=== PATIENT | female | born 1965 | race Caucasian/White ===

== ENCOUNTER 2023-06-29 09:07 | Emergency (ER) | payer SELFPAY ==
[2023-06-29] VITALS (14 sets, daily range): BP systolic 123–136; BP diastolic 72–82; PULSE 74–89; RESP 18; TEMP 36.3; O2SAT 89–96; BMI 39.0
--- NOTE | 2023-06-29 09:20 | ED.GENADULT ---
HPI - General Adult General Chief complaint: Abdominal Pain Stated complaint: abdominal pain Time Seen by Provider: 06/29/23 09:19 History of Present Illness HPI narrative: patient is having abdominal pain for a week. feels as if a pain of ball in the RUQ. sx of cramps with diarrhea, burning, and pain in the lower abdomen. will drink water and then pain starts. unable to eat anything the pain will develop. stated stomach feels really hot as if has a fever. Appointment at [facility] [place] Jul 05 for US unable to wait due to pain 58-year-old woman presenting to the emergency department with complaint of crampy and burning abdominal pain that seems to come out of the right upper abdomen spreading across the upper abdomen. She has been having though diarrheal symptoms as well. She does not endorse any hematochezia or melena. This has been going on now for about a week. Anything she eats or drinks, tries to take her pills just triggers her to have a bowel movement. The bowel movement does improve her abdominal discomfort. Not had any fever. Does have generalized abdominal discomfort as well. Was apparently pending an ultrasound ordered by clinic in a week. Does not describe any dysuria or frequency. She does have a history of cholecystectomy and sounds as though she had cholelithiasis. She notes that has had similar occurrences of these episodes last may have been 5 years ago. She had a gallbladder taken out about 30 years ago. They have been treated with penicillin sometime she feels successfully. She did take 3 tablets of amoxicillin a few days ago but she says the did not do anything. She has also tried Tylenol and Pepto-Bismol. No family history of ulcerative colitis or Crohn's. Related Data Home Medications Medication Instructions Recorded Confirmed albuterol sulfate 90 mcg/actuation 1 - 2 puff inhalation Q4H PRN 06/29/23 06/29/23 aerosol inhaler dyspnea glipizide 5 mg tablet 5 mg PO BID 06/29/23 06/29/23 lisinopril 20 1 tab PO DAILY 06/29/23 06/29/23 mg-hydrochlorothiazide 12.5 mg tablet pantoprazole 40 mg tablet,delayed 40 mg PO QAM 06/29/23 06/29/23 release polyethylene glycol 3350 17 17 g PO DAILY 06/29/23 06/29/23 gram/dose oral powder (Gavilax) Allergies Allergy/AdvReac Type Severity Reaction Status Date / Time No Known Drug Allergies Allergy Verified 06/29/23 13:07 Review of Systems Status of ROS: Reports: 6 or more systems reviewed and unremarkable except as noted in History and below PFSH [facility] Social History Smoking Status: Never smoker How often do you have a drink containing alcohol: monthly or less How often do you have six or more drinks on one occasion: Never AUDIT-C Alcohol total score: 1 Non-prescribed substance use: denies use Exam Narrative: Exam Narrative: Pleasant. NAD. Careful makeup. Breathing easily. Lungs appear to be clear. Heart in a regular rate and rhythm. Skin is warm and dry. Numerous superficial varicosities in lower extremities. She is well-perfused. There is no lower extremity edema. Abdomen with normoactive bowel sounds is overweight full and mildly generally tender though definitely most so in the right upper quadrant. I can not palpate masses. No peritoneal signs. Const: Vital Signs, click to edit/add: Vital Signs - 24 hr 06/29/23 09:08 06/29/23 10:11 06/29/23 10:30 Temperature 97.3 F L Pulse Rate 75 77 Pulse Rate [Pulse Oximeter] 84 Respiratory Rate 18 Blood Pressure 123/72 Blood Pressure [Le ft Upper Arm] 126/73 Pulse Oximetry 92 89 92 Oxygen Delivery Me thod Room Air 06/29/23 10:45 06/29/23 12:19 06/29/23 12:23 Temperature Pulse Rate 89 77 Pulse Rate [Pulse Oximeter] Respiratory Rate Blood Pressure Blood Pressure [Le ft Upper Arm] Pulse Oximetry 93 90 91 Oxygen Delivery Me thod Documenting provider has reviewed patient's vital signs: yes Course Vital Signs Vital signs: Initial Vital Signs Temperature 97.3 F L 06/29/23 09:08 Temperature Source Temporal Artery Scan 06/29/23 09:08 Pulse Rate 84 06/29/23 09:08 Respiratory Rate 18 06/29/23 09:08 Blood Pressure 126/73 06/29/23 09:08 Blood Pressure Mean 90 06/29/23 09:08 Blood Pressure Position Sitting 06/29/23 09:08 Pulse Oximetry 92 06/29/23 09:08 Oxygen Delivery Method Room Air 06/29/23 09:08 Vital Signs Temperature 97.3 F L 06/29/23 09:08 Pulse Rate 84 06/29/23 09:08 Respiratory Rate 18 06/29/23 09:08 Blood Pressure 126/73 06/29/23 09:08 Pulse Oximetry 92 06/29/23 09:08 Oxygen Delivery Method Room Air 06/29/23 09:08 Temperature 97.3 F L 06/29/23 09:08 Pulse Rate 74 06/29/23 13:45 Respiratory Rate 18 06/29/23 09:08 Blood Pressure 134/80 06/29/23 13:01 Pulse Oximetry 95 06/29/23 13:45 Oxygen Delivery Method Room Air 06/29/23 09:08 Medical Decision Making MDM Narrative Medical decision making narrative: This may be related to her history of cholecystectomy. Might have developed a stone in the biliary system. May be gastritis or gastroenteritis or colitis with intestinal colic. No exposures to infection. Might warrant getting a stool culture. Will hydrate. She would like something for pain will give ketorolac as well as Zofran. Pending ultrasound of the right upper abdomen. Ultrasound now available is unremarkable. Had discussed earlier with cloth washer. Pain has escalated again. FINDINGS: The visualized liver demonstrates diffusely coarsened and increased echogenicity. No intrahepatic mass. There is a normal appearance of the hepatic IVC and proximal abdominal aorta. There is no evidence of ascites. The gallbladder is absent. The common bile duct is of normal size and measures 6 mm in diameter at the level of the doc hepatis. The pancreas is not well visualized. There is no evidence of a stone or hydronephrosis within the visualized right kidney. The right kidney measures 11.5 cm in length. IMPRESSION: Diffuse hepatic steatosis. Status post cholecystectomy. Labs are reassuring generally. Inflammatory marker form of CRP is mildly elevated. I did discuss going home with PPI and Imodium, the latter of which she has reported using in the past. She still would like more information on what might be going on. Noting that symptoms have been going on for a week. I discussed that a week of diarrhea and abdominal pain in the setting normal vitals and relatively normal labs is not necessarily surprising. However she has never had abdominal imaging and has had recurrent bouts of this and would like further evaluation. Will proceed with IV contrasted abdominal scan CT and pelvis. Did have another diarrheal movement and a stool culture has been collected Given morphine for pain. Started to complain of feeling short of breath. Was worried about her blood sugar. Checked at 104 per nursing and when she received this information was no longer short of breath. IV contrasted CT scan --I did personally review these images. Radiology over-read as below. IMPRESSION: 1. Colonic diverticulosis. Diffuse vascular engorgement suggesting hyperemia within the colon with fluid noted in the colonic lumen. Appearance is consistent with a diffuse colitis. Differential diagnosis includes infection and inflammatory bowel disease. 2. Hepatomegaly with hepatic steatosis. 3. Status post cholecystectomy with mild dilatation of the common duct. This likely represents reservoir effect s/p cholecystectomy although correlation with liver function studies suggested. If there is a cholestatic picture, MRCP may have improved characterization. Overall is improved with treatments as above. Seems reassured. Appears to have colitis. I do not think this is clinical consistent with the question raised above of a potential cholestatic picture. We discussed treatments. She would really like to proceed with antibiotics at this point feeling that they have definitely helped her in the past. I pointed out normal white count and generalized colitis unusual treatment being symptom relief. Pending stool cultures. I understand her preference is and since that is the case then would consider treatment with metronidazole and ciprofloxacin combination. See patient discharge plan Lab Data Lab results reviewed: Yes I reviewed the patient's lab results Labs: Lab Results 06/29/23 06/29/23 Range/Units 09:55 10:55 WBC 6.13 (4.50-11.00) K/uL RBC 4.62 (4.00-5.20) m/uL Hgb 13.8 (12.0-16.0) gm/dL Hct 43.1 (33.0-51.0) % MCV 93 (80-100) fL MCH 30 (26-34) pg MCHC 32 (32-36) gm/dL RDW Coeff of [place] 12.2 (11.5-15.5) % Plt Count 197 (140-440) K/uL Neut % (Auto) 64.0 (42.0-72.0) % Lymph % (Auto) 19.1 L (20-44) % [place] % (Auto) 14.4 H (0.0-11.0) % Eos % (Auto) 2.0 (0.0-7.0) % Baso % (Auto) 0.5 (0.0-3.0) % Neut # (Auto) 3.93 (1.7-7.0) K/uL Lymph # (Auto) 1.20 (0.90-2.90) K/uL [place] # (Auto) 0.90 (0.00-0.90) K/UL Eos # (Auto) 0.12 (0.00-0.50) K/uL Baso # (Auto) 0.03 (0.00-0.30) K/uL Abs Immat Gran (auto) 0.00 (0.00-0.30) K/uL Imm/Tot Granulo (auto) 0.0 % Sodium 137 (135-149) mmol/L Potassium 3.4 L (3.6-5.1) mmol/L Chloride 99 (96-114) mmol/L Carbon Dioxide 30 (20-32) mmol/L BUN 11 (7-30) mg/dL Creatinine 0.5 (0.5-1.5) mg/dL Estimated Creat Clear 156.15 Estimated GFR 108 ml/min Glucose 127 H (60-115) mg/dL Calcium 9.3 (8.4-10.6) mg/dL Total Bilirubin 0.5 (0.1-1.5) mg/dL Direct Bilirubin 0.0 (0.0-0.5) mg/dL AST 28 (12-35) U/L ALT 30 (4-35) U/L Alkaline Phosphatase 64 (40-150) U/L C-Reactive Protein 4.3 H (0.5-1.0) mg/dL Total Protein 7.8 (6.0-8.3) g/dL Albumin 4.3 (3.3-5.0) g/dL Lipase 109 (23-300) U/L Urine Color Yellow (Yellow) Urine Appearance Clear (Clear) Urine pH 6.5 (5.0-8.5) Ur Specific [place] 1.010 (1.000-1.030) Urine Protein Negative (Negative) Urine Glucose (UA) Negative (Negative) Urine Ketones Negative (Negative) Urine Blood Trace-intact A (Negative) Urine Nitrite Negative (Negative) Urine Bilirubin Negative (Negative) Urine Urobilinogen 0.2 (0.2-1.0) Ur Leukocyte Esterase Negative (Negative) Urine RBC 0-2 (0-2) Urine WBC 0-2 (0-5) Ur Squamous Epith Cells Few (None-Few) Urine Bacteria None (None) Discharge Plan Discharge Clinical Impression: Colitis, Abdominal pain Patient Disposition: Home w/ Parent or Adult Condition: Stable Additional Instructions: As I said, I am not convinced that antibiotics will help you. Focus on hydration. Gentle diet for the next few days. Start with diluted juices, soup broths, crackers, toast, rice. Return for marked increase in persistent pain, repeated vomiting, fever, intractable diarrhea. Ciprofloxacin, metronidazole, norco, zofran from [facility]. Please follow-up with your primary care provider in about 2 weeks to discuss next steps in plan for further evaluation. [place] dije, no estoy convencido de que los antibi?ticos te ayuden. Conc?ntrese en la hidrataci?n. Dieta suave para los pr?ximos d?as. Comience con jugos diluidos, caldos de sopa, galletas saladas, tostadas, arroz. Retorno para un marcado aumento del dolor persistente, v?mitos repetidos, fiebre, diarrea intratable. Ciprofloxacino, metronidazol, norco, zofran de [facility]. Yoan un seguimiento con schafer proveedor de atenci?n primaria en aproximadamente 2 semanas para analizar los pr?ximos pasos en el plan para neida evaluaci?n adicional. Prescriptions: No Action lisinopril-hydrochlorothiazide 20-12.5 mg tablet 1 tab PO DAILY pantoprazole 40 mg tablet,delayed release (DR/EC) 40 mg PO QAM albuterol sulfate 90 mcg/actuation HFA aerosol inhaler 1 - 2 puff INHALATION Q4H PRN (Reason: dyspnea) glipizide 5 mg tablet 5 mg PO BID polyethylene glycol 3350 [Gavilax] 17 gram/dose powder 17 g PO DAILY Follow Up/Referrals: Sarah Herrmann MD [Primary Care Provider] - Stand Alone Forms: [email or web address] Info Instructions
--- NOTE | 2023-06-29 09:45 | CRLHL7_ITS ---
For Patients: As a result of the Century Cures Act, medical imaging exams and procedure reports are released immediately into your electronic medical record. You may view this report before your referring provider. If you have questions, please contact your health care provider. INDICATION: UPPER ABD PAIN, DIARRHEA COMPARISON: none TECHNIQUE: Real time ayala scale imaging and color Doppler analysis was performed of the right upper quadrant. Examination limited by overlying bowel gas. FINDINGS: The visualized liver demonstrates diffusely coarsened and increased echogenicity. No intrahepatic mass. There is a normal appearance of the hepatic IVC and proximal abdominal aorta. There is no evidence of ascites. The gallbladder is absent. The common bile duct is of normal size and measures 6 mm in diameter at the level of the doc hepatis. The pancreas is not well visualized. There is no evidence of a stone or hydronephrosis within the visualized right kidney. The right kidney measures 11.5 cm in length. IMPRESSION: Diffuse hepatic steatosis. Status post cholecystectomy. Dictated by Chuck Bernal MD @ 06/29/2023 11:34:51 AM (Electronically Signed)
[2023-06-29] MEDS: 0.9 % SODIUM CHLORIDE 1000 ml 1,000 ML IV (10:02)
[2023-06-29] MEDS: ONDANSETRON 2 MG/ML inj 4 MG IVP (10:05)
[2023-06-29] MEDS: KETOROLAC 15 MG/ML inj IVP (10:05)
[2023-06-29 10:10] LABS: Basophils Absolute Auto 0.03 K/uL (0.00-0.30); Basophils Percent Auto 0.5 % (0.0-3.0); Eosinophils Absolute Auto 0.12 K/uL (0.00-0.50); Hematocrit 43.1 % (33.0-51.0); Hemoglobin* 13.8 gm/dL (12.0-16.0); Lymphocytes Percent Auto 19.1 % (20-44); Mean Corpuscular HGB Conc 32 gm/dL (32-36); Mean Corpuscular Hemoglobin 30 pg (26-34); Mean Corpuscular Volume 93 fL (80-100); Monocytes Percent Auto 14.4 % (0.0-11.0); Neutrophils Absolute Auto 3.93 K/uL (1.7-7.0); Platelet Count* 197 K/uL (140-440); RDW Coefficient of Variation % 12.2 % (11.5-15.5); Red Blood Count 4.62 m/uL (4.00-5.20); White Blood Count* 6.13 K/uL (4.50-11.00)
[2023-06-29 10:17] LABS: Slide Review Reflex No
[2023-06-29 10:24] LABS: Albumin* 4.3 g/dL (3.3-5.0); Chloride* 99 mmol/L (96-114); Sodium* 137 mmol/L (135-149)
[2023-06-29 10:25] LABS: Potassium* 3.4 mmol/L (3.6-5.1)
[2023-06-29 10:27] LABS: Bilirubin Total* 0.5 mg/dL (0.1-1.5); Carbon Dioxide* 30 mmol/L (20-32); Creatinine* 0.5 mg/dL (0.5-1.5); Est. Creatinine Clearance* 156.15; Estimated Glomerular Filt Rate 108 ml/min
[2023-06-29 10:28] LABS: Alanine Aminotransferase* 30 U/L (4-35); Alkaline Phosphatase* 64 U/L (40-150); Aspartate Amino Transferase* 28 U/L (12-35); Blood Urea Nitrogen* 11 mg/dL (7-30); Calcium* 9.3 mg/dL (8.4-10.6); Glucose* 127 mg/dL (60-115); Lipase* 109 U/L (23-300); Total Protein* 7.8 g/dL (6.0-8.3)
[2023-06-29 10:30] LABS: C Reactive Protein* 4.3 mg/dL (0.5-1.0)
[2023-06-29 11:07] LABS: Appearance Urine Clear (Clear); Bilirubin Urine Negative (Negative); Blood Urine Trace-intact (Negative); Color Urine Yellow (Yellow); Glucose Urine Negative (Negative); Ketones Urine Negative (Negative); Leukocyte Esterase Urine Negative (Negative); Nitrite Urine Negative (Negative); Protein Urine Negative (Negative); Urobilinogen Urine 0.2 (0.2-1.0); pH Urine 6.5 (5.0-8.5)
[2023-06-29 11:15] LABS: RBC Urine 0-2 (0-2); Squamous Epithelial Cell Urine Few (None-Few); WBC Urine 0-2 (0-5)
--- NOTE | 2023-06-29 11:39 | ED.NURSE ---
patient is having increased pain in that is sharp in the abdomen. Requesting something for pain. Informed Dr. Lopez of this.
--- NOTE | 2023-06-29 11:45 | CRLHL7_ITS ---
For Patients: As a result of the Century Cures Act, medical imaging exams and procedure reports are released immediately into your electronic medical record. You may view this report before your referring provider. If you have questions, please contact your health care provider. INDICATION: Abdominal pain, diarrhea and nausea TECHNIQUE: Axial images were obtained from the diaphragm to the pubic symphysis. Reformats were obtained in the coronal and sagittal plane. IV Contrast: 89 cc Isovue 370 Oral Contrast: None COMPARISON: Abdomen and pelvis CT 04/25/2020 FINDINGS: Lower chest: Basilar discoid atelectasis. Minimal fat containing Bochdalek hernia on the right. Liver: Diffusely decreased density of the liver without focal lesion. Mild hepatomegaly. Gallbladder and bile ducts: Status post cholecystectomy. Common duct measures 12 millimeters. Spleen: Unremarkable. Normal in size without mass. Pancreas: Unremarkable. No mass or inflammation. Adrenal glands: Unremarkable. No nodules. Kidneys: Unremarkable. No masses, stones, or hydronephrosis. Vasculature: Atherosclerosis without abdominal aortic aneurysm. Subcentimeter retroperitoneal lymph nodes. GI tract: Minimal hiatal hernia. Stomach is decompressed. No dilated loops of large or small intestine. Colonic diverticulosis. Fluid is noted within the colon with diffuse vascular engorgement throughout the pericolonic mesentery extending the length of the colon. Scattered sub centimeter pericolonic lymph nodes. Status post ventral hernia repair. Pelvis: Status post hysterectomy. Bladder unremarkable. Bones: Osteitis pubis. Prominent hemangioma within the L4 vertebral body. IMPRESSION: 1. Colonic diverticulosis. Diffuse vascular engorgement suggesting hyperemia within the colon with fluid noted in the colonic lumen. Appearance is consistent with a diffuse colitis. Differential diagnosis includes infection and inflammatory bowel disease. 2. Hepatomegaly with hepatic steatosis. 3. Status post cholecystectomy with mild dilatation of the common duct. This likely represents reservoir effect s/p cholecystectomy although correlation with liver function studies suggested. If there is a cholestatic picture, MRCP may have improved characterization. Please note that all CT scans at this facility use dose modulation, iterative reconstruction, and/or weight-based dosing when appropriate to reduce radiation dose to as low as reasonably achievable. Dictated by Leandro Wen MD @ 06/29/2023 1:35:00 PM (Electronically Signed)
[2023-06-29] MEDS: HYOSCYAMINE SULFATE 0.125 MG TAB 0.25 MG SUBLINGUAL (12:14)
[2023-06-29] MEDS: MORPHINE 4 MG/ML INJ IVP (12:17)
--- NOTE | 2023-06-29 12:31 | ED.NURSE ---
Pt reports feeling short of breath, requesting typewriter assembly and parts inspector to check her blood sugar level. BG checked, 104. notified. After BG checked, pt states SOB resolved.
== END 2023-06-29 14:29 | disposition home or self-care (01) ==
PROVIDERS: Emergency Provider Family Medicine; PCP Family Medicine
DX: K52.9 Noninfective gastroenteritis and colitis, unspecified (principal)
CPT/HCPCS: 36415; 74177; 76705; 80048; 80076; 81001; 82962; 83690; 85025; 86140; 87045; 87046; 87427; 94761; 96374; 96375; 99284; A9270; J1885; J2270; J2405; J7030; Q9967

== ENCOUNTER 2023-11-01 07:58 | Outpatient (CLI) | payer MEDICAID, SELFPAY ==
--- NOTE | 2023-11-01 10:14 | W.ANESCHARGE ---
Anesthesia Charges Start Date/Time Anesthesia Start Date: 11/01/23 Anesthesia Start Time: 09:25 Stop Date/Time Anesthesia Stop Date: 11/01/23 Anesthesia Stop Time: 10:15
--- NOTE | 2023-11-01 10:41 | W.ANESCHARGE ---
Anesthesia Charges Start Date/Time Anesthesia Start Date: 11/01/23 Anesthesia Start Time: 09:25 Stop Date/Time Anesthesia Stop Date: 11/01/23 Anesthesia Stop Time: 10:15
== END 2023-11-01 07:59 | disposition home or self-care (01) ==
PROVIDERS: PCP Family Medicine; Visit Provider Internal Medicine Gastroenterology
DX: Z12.11 Encounter for screening for malignant neoplasm of colon (principal)
CPT/HCPCS: 00812; 45378; J2704